=== PATIENT | female | born 1950 | race Two or more races ===

== ENCOUNTER 2016-05-27 12:22 | Emergency (ER) | payer MEDICARE ==
[~2016-05-27] VITALS: Ht 167.6 cm; Wt 89.8 kg
[2016-05-27] MEDS ORDERED: TDAP [DIPH/PERTUSSIS/TET] 0.5 ML VIAL IM ONE ×2 (12:47→13:00)
[2016-05-27] MEDS ORDERED: GABA-534 PO (13:01)
[2016-05-27] MEDS ORDERED: CELE200C PO (13:01)
[2016-05-27] MEDS ORDERED: METO25TA3 PO (13:01)
[2016-05-27] MEDS ORDERED: CITA10TA9 PO (13:01)
[2016-05-27] MEDS ORDERED: DEXL60CA3 PO (13:01)
[2016-05-27] MEDS ORDERED: SIMV20TA6 PO (13:01)
[2016-05-27] MEDS ORDERED: MELO-264 PO (13:01)
[2016-05-27] MEDS ORDERED: CANA100T PO (13:02)
[2016-05-27] MEDS ORDERED: SITA1TAB6 PO (13:02)
--- NOTE | 2016-05-27 13:02 | NUR ---
PT REC'D TO ER C/O GROUND FALL NO KO . LEFT EYE AND FORHEAD ABRASIONS NOTED AND RT KNEE . PT FELL LAST NIGHT WANTS TO CK. ADAP TET RT DELTOID IM GIVEN PER MD FAMILY AT BEDSIDE VSS AWAITING EVALUATION BY ER PROVIDER.
[2016-05-27 13:03] VITALS: BP_SYST 138
[2016-05-27] MEDS ORDERED: GLIM2TAB2 PO (13:03)
[2016-05-27] MEDS ORDERED: CHOL100044 PO (13:06)
[2016-05-27] MEDS ORDERED: OLME1TAB34 PO (13:07)
--- NOTE | 2016-05-27 14:41 | NUR ---
PT. VERBALIZED UNDERSTANDING OF AFTERCARE INSTRUCTIONS.Patient discharged to home in stable condition. Written and verbal after care instructions given. Patient verbalizes understanding of instruction.
[2016-05-27 14:43] VITALS: BP_DIAS 127
== END 2016-05-27 14:44 | disposition home or self-care (01) ==
LOC: ER 12:24
DX: S00.91XA Abrasion of unspecified part of head, initial encounter (principal); E78.00 Pure hypercholesterolemia, unspecified; I10 Essential (primary) hypertension; E11.9 Type 2 diabetes mellitus without complications; Z88.6 Allergy status to analgesic agent; W01.0XXA Fall on same level from slipping, tripping and stumbling without subsequent striking against object, initial encounter; Y93.89 Activity, other specified; Y92.89 Other specified places as the place of occurrence of the external cause; Y99.8 Other external cause status
CPT/HCPCS: 70150; 90471; 90715; 99284; A4606; Z7610

== ENCOUNTER 2017-01-23 12:14 | Emergency (ER) | payer MEDICARE, OTHER ==
[~2017-01-23] VITALS: Ht 167.6 cm; Wt 87.5 kg
[~2017-01-23 12:14] MED LIST: CANA100T PO; CELE200C PO; CHOL100044 PO; CITA10TA9 PO; DEXL60CA3 PO; GABA-534 PO; GLIM2TAB2 PO; MELO-264 PO; METO25TA3 PO; OLME1TAB34 PO; SIMV20TA6 PO; SITA1TAB6 PO
--- NOTE | 2017-01-23 13:10 | NUR ---
PRESENTS TO ER C/O ON/OFF HEADACHE X 1 WEEK. ALSO C/O MILD NAUSEA. A/OX 4. BREATHING EVEN AND UNLABORED. NO SOB. VITALS STABLE. NO NEURO DEFICITS. SAFETY AND COMFORT MEASURES IN PLACE. AWAITING MD ORDERS.
[2017-01-23] MEDS ORDERED: KETOROLAC TROMETHAMINE INJ 30 MG/ML VIAL ONE (13:21)
[2017-01-23] MEDS ORDERED: ONDANSETRON HCL/PF 4 MG/2 ML VIAL ONE (13:22)
--- NOTE | 2017-01-23 13:25 | NUR ---
NEW IV STARTED ON LAC, 18 G. BLOOD DRAWN AND SENT TO LAB.
[2017-01-23] MEDS ORDERED: IV NS 0.9% 1,000 ML BAG IV ONE (13:30)
[2017-01-23] MEDS ORDERED: KETOROLAC TROMETHAMINE INJ 30 MG/ML VIAL IV ONE (13:30)
[2017-01-23] MEDS ORDERED: ONDANSETRON HCL/PF 4 MG/2 ML VIAL IVP ONE (13:30)
--- NOTE | 2017-01-23 13:35 | NUR ---
PATIENT MEDICATED PER MD ORDERS.
[2017-01-23 13:37] LABS: LYMPHOCYTES # (AUTO) 1.2 /CMM (0.8-4.8); MEAN CORPUSCULAR HEMOGLOBIN 25 PG (26.0-33.0); MONOCYTES # (AUTO) 0.4 /CMM (0.1-1.30); WHITE BLOOD COUNT (AUTO) 4.8 K/uL (4.3-11.0)
[2017-01-23 13:42] LABS: BASOPHILS % (AUTO) 0.8 % (0.0-2.0); EOSINOPHILS % (AUTO) 0.7 % (0.0-6.0); HEMATOCRIT 44 % (33-45); HEMOGLOBIN 14.3 g/dL (11.5-14.8); LYMPHOCYTES % (AUTO) 25.4 % (20.0-44.0); MEAN CORPUSCULAR HGB CONC 33 g/dl (31.0-36.0); MEAN CORPUSCULAR VOLUME 77 fL (82-100); MONOCYTES % (AUTO) 8.7 % (2.0-12.0); NEUTROPHILS # (AUTO) 3.2 /CMM (1.8-8.9); NEUTROPHILS % (AUTO) 64.4 % (43.0-81.0); PLATELET COUNT (AUTO) 219 /CMM (150-450); RDW COEFFICIENT OF VARIATION 13.8 (11.5-15.0); RED BLOOD CELL COUNT(AUTO) 5.71 MIL/uL (4.0-5.2)
[2017-01-23 14:05] LABS: CALCIUM, SERUM 9.4 mg/dL (8.5-10.1); CREATININE 0.8 mg/dL (0.6-1.3); POTASSIUM 4.3 mmol/L (3.5-5.1)
--- NOTE | 2017-01-23 14:05 | NUR ---
URINE OBTAINED AND SENT TO LAB.
--- NOTE | 2017-01-23 14:15 | NUR ---
PATIENT TAKEN TO CT VIA STRETCHER.
--- NOTE | 2017-01-23 14:30 | NUR ---
PATIENT RETURNED FROM CT IN STABLE CONDITION.
[2017-01-23 14:46] LABS: APPEARANCE,URINE Clear (CLEAR); BILIRUBIN,URINE Negative (NEGATIVE); BLOOD, URINE Negative Ery/uL (NEGATIVE); COLOR,URINE Yellow (YELLOW); KETONES,URINE Negative (NEGATIVE); LEUKOCYTE ESTERASE ,URINE Trace (NEGATIVE); NITRITE, URINE Negative (NEGATIVE); PROTEIN,URINE Negative (NEGATIVE); UGLUCOSE >=1000 mg/dL (NEGATIVE); UROBILINOGEN,URINE 0.2 EU/dL (0.2)
[2017-01-23 14:49] LABS: BACTERIA,URINE Few /HPF (None Seen); SQUAMOUS EPITHELIAL CELL,UR Few /HPF (None Seen)
--- NOTE | 2017-01-23 15:19 | NUR ---
IV removed. Catheter intact and site benign. Pressure and 4x4 applied to site. No bleeding noted.Patient discharged to home in stable condition. Written and verbal after care instructions given. Patient verbalizes understanding of instruction.
[2017-01-23 15:20] VITALS: BP 181/92
== END 2017-01-23 15:21 | disposition home or self-care (01) ==
LOC: ER 12:18
DX: N39.0 Urinary tract infection, site not specified (principal); E78.5 Hyperlipidemia, unspecified; E11.9 Type 2 diabetes mellitus without complications; Z88.6 Allergy status to analgesic agent; Z88.5 Allergy status to narcotic agent; Z79.84 Long term (current) use of oral hypoglycemic drugs
CPT/HCPCS: 36415; 70450; 80048; 81001; 85025; 87086; 93005; 96361; 96374; 96375; 99285; A4606; J1885; J2405; J7030; 81000-TC; Z7610

== ENCOUNTER 2023-11-10 15:14 | Emergency (ER) | payer MEDICARE, OTHER ==
[~2023-11-10] VITALS: Ht 167.6 cm; Wt 86.2 kg
[~2023-11-10 15:14] MED LIST changes: -GLIM2TAB2 PO; +GLIM2TAB31 PO; +MELO-107 PO; -MELO-264 PO; +SIMV-46 PO; -SIMV20TA6 PO
[2023-11-10] MEDS ORDERED: METOCLOPRAMIDE HCL 10 MG/2 ML VIAL ONE (16:12)
[2023-11-10] MEDS: METOCLOPRAMIDE HCL 10 MG/2 ML VIAL IV ONE (16:19)
[2023-11-10] MEDS: IV NS 0.9% 1,000 ML BAG IV ONE (16:19)
[2023-11-10 16:23] LABS: BASOPHILS % (AUTO) 0.6 % (0.0-2.0); EOSINOPHILS # (AUTO) 0.1 K/uL (0.0-0.7); EOSINOPHILS % (AUTO) 1.8 % (0.0-6.0); HEMATOCRIT 42 % (33-45); HEMOGLOBIN 13.6 g/dL (11.5-14.8); LYMPHOCYTES # (AUTO) 1.1 K/uL (0.8-4.8); LYMPHOCYTES % (AUTO) 21.6 % (20.0-44.0); MEAN CORPUSCULAR HEMOGLOBIN 25 PG (26.0-33.0); MEAN CORPUSCULAR HGB CONC 33 g/dl (31.0-36.0); MEAN CORPUSCULAR VOLUME 77 fL (82-100); MONOCYTES # (AUTO) 0.6 K/uL (0.1-1.30); MONOCYTES % (AUTO) 11.4 % (2.0-12.0); NEUTROPHILS # (AUTO) 3.2 K/uL (1.8-8.9); NEUTROPHILS % (AUTO) 64.6 % (43.0-81.0); PLATELET COUNT (AUTO) 226 K/uL (150-450); RED BLOOD CELL COUNT(AUTO) 5.44 MIL/uL (4.0-5.2); RED CELL DISTRIBUTION WIDTH 15.5 % (11.5-15.0); WHITE BLOOD COUNT (AUTO) 4.9 K/uL (4.3-11.0)
[2023-11-10 16:30] LABS: APPEARANCE,URINE CLEAR (CLEAR); BILIRUBIN,URINE NEGATIVE (NEGATIVE); BLOOD, URINE TRACE-INTA Ery/uL (NEGATIVE); COLOR,URINE YELLOW (YELLOW); KETONES,URINE NEGATIVE (NEGATIVE); LEUKOCYTE ESTERASE ,URINE TRACE (NEGATIVE); NITRITE, URINE NEGATIVE (NEGATIVE); PROTEIN,URINE NEGATIVE (NEGATIVE); UGLUCOSE 3+ mg/dL (NEGATIVE); UROBILINOGEN,URINE 0.2 EU/dL (0.2)
[2023-11-10 16:34] LABS: INR 0.97 (0.91-1.10); PARTIAL THROMBOPLASTIN TIME 21.6 SEC (24.3-34.3); PROTHROMBIN TIME 10.3 SECS (9.2-11.1)
[2023-11-10 16:43] LABS: ALANINE AMINOTRANSFERASE 14 U/L (12-78); ALBUMIN 4.2 g/dL (3.4-5.0); ALKALINE PHOSPHATASE 78 U/L (46-116); ASPARTATE AMINOTRANSFERASE 18 U/L (15-37); BILIRUBIN,DIRECT 0.1 mg/dL (0.0-0.2); BILIRUBIN,TOTAL 0.4 mg/dL (0.2-1.0); CALCIUM, SERUM 9.7 mg/dL (8.5-10.1); CARBON DIOXIDE 27 mmol/L (21-32); CHLORIDE 102 mmol/L (98-107); CREATININE 1.3 mg/dL (0.6-1.3); GLUCOSE 173 mg/dL (74-106); POTASSIUM 3.9 mmol/L (3.5-5.1); SODIUM SERUM 138 mmol/L (136-145); TOTAL PROTEIN, SERUM 8.3 g/dL (6.4-8.2); UREA NITROGEN, BLOOD 18 mg/dL (7-18)
[2023-11-10 16:49] LABS: ADD URINE CULTURE NO; BACTERIA,URINE Rare /HPF (None Seen)
[2023-11-10] MEDS ORDERED: NITR100C6 PO (19:42)
[2023-11-10 20:10] VITALS: BP 110/70; TEMP 98; O2SAT 99
== END 2023-11-10 20:10 | disposition home or self-care (01) ==
LOC: ER 15:14
DX: N39.0 Urinary tract infection, site not specified (principal); R42 Dizziness and giddiness; E86.0 Dehydration; R51.9 Headache, unspecified; I10 Essential (primary) hypertension; E78.5 Hyperlipidemia, unspecified; E11.9 Type 2 diabetes mellitus without complications; Z88.5 Allergy status to narcotic agent; Z88.6 Allergy status to analgesic agent
CPT/HCPCS: 99285; 96374; 70450; 96361; 93005; 85025; 80048; 80076; 81001; 36415; 84484; 85730; J2765; J7030

== ENCOUNTER 2024-03-17 21:46 | Inpatient (IN) | payer MEDICARE, OTHER ==
[~2024-03-17] VITALS: Ht 167.6 cm; Wt 87.7 kg
[~2024-03-17 21:46] MED LIST changes: +NITR100C6 PO
[2024-03-17] MEDS ORDERED: IV NS 0.9% 1,000 ML BAG IV ONE (22:00)
[2024-03-17 22:15] LABS: BASOPHILS % (AUTO) 0.5 % (0.0-2.0); EOSINOPHILS % (AUTO) 0.6 % (0.0-6.0); HEMATOCRIT 40 % (33-45); HEMOGLOBIN 13.3 g/dL (11.5-14.8); LYMPHOCYTES # (AUTO) 1.7 K/uL (0.8-4.8); LYMPHOCYTES % (AUTO) 28.9 % (20.0-44.0); MEAN CORPUSCULAR HEMOGLOBIN 26 PG (26.0-33.0); MEAN CORPUSCULAR HGB CONC 33 g/dl (31.0-36.0); MEAN CORPUSCULAR VOLUME 77 fL (82-100); MONOCYTES # (AUTO) 0.5 K/uL (0.1-1.30); MONOCYTES % (AUTO) 8.8 % (2.0-12.0); NEUTROPHILS # (AUTO) 3.5 K/uL (1.8-8.9); NEUTROPHILS % (AUTO) 61.2 % (43.0-81.0); PLATELET COUNT (AUTO) 232 K/uL (150-450); RED CELL DISTRIBUTION WIDTH 15.1 % (11.5-15.0); WHITE BLOOD COUNT (AUTO) 5.7 K/uL (4.3-11.0)
[2024-03-17] MEDS: IV NS 0.9% 1,000 ML BAG IV ONE (22:19)
[2024-03-17 22:29] LABS: ALANINE AMINOTRANSFERASE 20 U/L (12-78); ALBUMIN 4.5 g/dL (3.4-5.0); ALCOHOL, BLOOD < 3 mg/dL (0-10); ALKALINE PHOSPHATASE 84 U/L (46-116); ASPARTATE AMINOTRANSFERASE 13 U/L (15-37); BILIRUBIN,DIRECT 0.2 mg/dL (0.0-0.2); BILIRUBIN,TOTAL 0.5 mg/dL (0.2-1.0); CALCIUM, SERUM 9.4 mg/dL (8.5-10.1); CARBON DIOXIDE 25 mmol/L (21-32); CHLORIDE 107 mmol/L (98-107); CREATININE 1.1 mg/dL (0.6-1.3); GLUCOSE 232 mg/dL (74-106); POTASSIUM 4.2 mmol/L (3.5-5.1); SODIUM SERUM 145 mmol/L (136-145); TOTAL PROTEIN, SERUM 8.3 g/dL (6.4-8.2); UREA NITROGEN, BLOOD 20 mg/dL (7-18)
[2024-03-17 22:30] LABS: INR 0.98 (0.91-1.10); PARTIAL THROMBOPLASTIN TIME 26.1 SEC (24.3-34.3); PROTHROMBIN TIME 10.4 SECS (9.2-11.1)
[2024-03-18] MEDS ORDERED: ASPIRIN 325 MG TABLET ONE (00:09)
[2024-03-18] MEDS: ASPIRIN 325 MG TABLET PO ONE (00:11)
[2024-03-18] MEDS ORDERED: MAG HYDROX/AL HYDROX/SIMETH 30 ML UDC PO PRN (00:30)
[2024-03-18 00:43] LABS: APPEARANCE,URINE CLEAR (CLEAR); BILIRUBIN,URINE NEGATIVE (NEGATIVE); BLOOD, URINE NEGATIVE Ery/uL (NEGATIVE); COLOR,URINE YELLOW (YELLOW); KETONES,URINE NEGATIVE (NEGATIVE); LEUKOCYTE ESTERASE ,URINE NEGATIVE (NEGATIVE); NITRITE, URINE NEGATIVE (NEGATIVE); PROTEIN,URINE NEGATIVE (NEGATIVE); UGLUCOSE 3+ mg/dL (NEGATIVE); UROBILINOGEN,URINE 0.2 EU/dL (0.2)
[2024-03-18 01:04] LABS: AMPHETAMINE, URINE NEGATIVE (NEGATIVE); BARBITURATE, URINE NEGATIVE (NEGATIVE); BENZODIAZEPINE, URINE NEGATIVE (NEGATIVE); CANNABINOID, URINE NEGATIVE (NEGATIVE); COCCAINE, URINE NEGATIVE (NEGATIVE); OPIATE, URINE NEGATIVE (NEGATIVE); PHENCYCLIDINE SCREEN,URINE NEGATIVE (NEGATIVE)
[2024-03-18 01:07] LABS: ADD URINE CULTURE YES; BACTERIA,URINE Few /HPF (None Seen)
[2024-03-18 01:09] LABS: RBC,URINE 0-2 /HPF (0-2); SQUAMOUS EPITHELIAL CELL,UR Few /HPF (None Seen)
[2024-03-18 04:00] VITALS: BP 109/53; TEMP 97.7; O2SAT 98
[2024-03-18] MEDS: IV 1/2NS 1000 ML 1,000 ML IV SCH (05:21)
[2024-03-18] MEDS: ACETAMINOPHEN ES 500 MG TABLET PO ONE (05:52)
[2024-03-18] MEDS ORDERED: ACETAMINOPHEN 325 MG TABLET PO PRN (06:00)
[2024-03-18] MEDS: PANTOPRAZOLE 40 MG TABLET.DR PO SCH (07:45)
[2024-03-18] MEDS: BLOOD SUGAR DIAGNOSTIC 1 EACH STRIP IN SCH (07:52)
[2024-03-18 08:00] VITALS: BP 122/73; TEMP 97.7; O2SAT 99
[2024-03-18 08:01] LABS: BASOPHILS % (AUTO) 0.5 % (0.0-2.0); EOSINOPHILS # (AUTO) 0.1 K/uL (0.0-0.7); EOSINOPHILS % (AUTO) 1.2 % (0.0-6.0); HEMATOCRIT 37 % (33-45); HEMOGLOBIN 12.2 g/dL (11.5-14.8); LYMPHOCYTES # (AUTO) 1.1 K/uL (0.8-4.8); LYMPHOCYTES % (AUTO) 25.5 % (20.0-44.0); MEAN CORPUSCULAR HEMOGLOBIN 26 PG (26.0-33.0); MEAN CORPUSCULAR HGB CONC 33 g/dl (31.0-36.0); MEAN CORPUSCULAR VOLUME 78 fL (82-100); MONOCYTES # (AUTO) 0.5 K/uL (0.1-1.30); MONOCYTES % (AUTO) 11.2 % (2.0-12.0); NEUTROPHILS # (AUTO) 2.6 K/uL (1.8-8.9); NEUTROPHILS % (AUTO) 61.6 % (43.0-81.0); PLATELET COUNT (AUTO) 204 K/uL (150-450); RED BLOOD CELL COUNT(AUTO) 4.76 MIL/uL (4.0-5.2); RED CELL DISTRIBUTION WIDTH 15.4 % (11.5-15.0); WHITE BLOOD COUNT (AUTO) 4.2 K/uL (4.3-11.0)
[2024-03-18 08:27] LABS: CALCIUM, SERUM 8.7 mg/dL (8.5-10.1); CREATININE 0.8 mg/dL (0.6-1.3); POTASSIUM 3.7 mmol/L (3.5-5.1)
[2024-03-18] MEDS: ASPIRIN 81 MG TAB.CHEW PO SCH (10:19)
[2024-03-18 12:00] VITALS: BP 102/68; TEMP 97.5; O2SAT 94
[2024-03-18 16:00] VITALS: BP 117/71; TEMP 97.6; O2SAT 95
[2024-03-18 20:00] VITALS: BP 130/80; TEMP 97.7; O2SAT 94
[2024-03-18] MEDS: ATORVASTATIN 40 MG TABLET PO SCH (21:15)
[2024-03-18] MEDS: INSULIN GLARGINE, 100 UNIT/ML CARTRIDGE SQ SCH (21:16)
[2024-03-19] VITALS: BP 143/82; TEMP 97.8; O2SAT 94
[2024-03-19] MEDS ORDERED: DEXTROSE 50%-WATER 50 ML DISP.SYRIN IV PRN (01:00)
[2024-03-19] MEDS: BLOOD SUGAR DIAGNOSTIC 1 EACH STRIP IN SCH (01:36)
[2024-03-19] MEDS: INSULIN REGULAR, HUMAN 100 UNIT/ML 3 ML VIAL SQ PRN (01:38)
[2024-03-19 04:00] VITALS: BP 126/69; TEMP 97.8; O2SAT 95
[2024-03-19 06:24] LABS: BASOPHILS % (AUTO) 0.5 % (0.0-2.0); EOSINOPHILS # (AUTO) 0.1 K/uL (0.0-0.7); EOSINOPHILS % (AUTO) 1.3 % (0.0-6.0); HEMATOCRIT 37 % (33-45); HEMOGLOBIN 12.4 g/dL (11.5-14.8); LYMPHOCYTES # (AUTO) 1.1 K/uL (0.8-4.8); LYMPHOCYTES % (AUTO) 23.4 % (20.0-44.0); MEAN CORPUSCULAR HEMOGLOBIN 26 PG (26.0-33.0); MEAN CORPUSCULAR HGB CONC 33 g/dl (31.0-36.0); MEAN CORPUSCULAR VOLUME 77 fL (82-100); MONOCYTES # (AUTO) 0.5 K/uL (0.1-1.30); MONOCYTES % (AUTO) 10.7 % (2.0-12.0); NEUTROPHILS # (AUTO) 2.9 K/uL (1.8-8.9); NEUTROPHILS % (AUTO) 64.1 % (43.0-81.0); PLATELET COUNT (AUTO) 201 K/uL (150-450); RED BLOOD CELL COUNT(AUTO) 4.86 MIL/uL (4.0-5.2); RED CELL DISTRIBUTION WIDTH 15.3 % (11.5-15.0); WHITE BLOOD COUNT (AUTO) 4.5 K/uL (4.3-11.0)
[2024-03-19 06:27] LABS: CALCIUM, SERUM 9.3 mg/dL (8.5-10.1); CREATININE 0.9 mg/dL (0.6-1.3); POTASSIUM 3.8 mmol/L (3.5-5.1)
[2024-03-19 08:05] VITALS: BP 143/79; TEMP 97.8; O2SAT 94
[2024-03-19] MEDS ORDERED: IOHEXOL-350 100 ML VIAL IV ONE (09:31)
[2024-03-19] MEDS ORDERED: CT SWABBABLE VALVE TRANS SET 1 EA INFUS.SET MC ONE (09:31)
[2024-03-19] MEDS ORDERED: IV NS 0.9% 250 ML IV ONE (09:31)
[2024-03-19] MEDS ORDERED: ROSU10TA2 PO (09:47)
[2024-03-19] MEDS ORDERED: NIFE-34 PO (09:47)
[2024-03-19] MEDS ORDERED: FERR-68 PO (09:47)
[2024-03-19] MEDS ORDERED: OLME1TAB92 PO (09:47)
[2024-03-19] MEDS ORDERED: GLIM4TAB37 PO (09:47)
[2024-03-19] MEDS ORDERED: SEMA7TAB PO (09:47)
[2024-03-19] MEDS ORDERED: DAPA10TA PO (09:47)
[2024-03-19] MEDS ORDERED: OMEP20CA15 PO (09:47)
[2024-03-19 12:00] VITALS: BP 135/89; TEMP 98; O2SAT 95
[2024-03-19 16:10] VITALS: BP 131/76; TEMP 98; O2SAT 93
[2024-03-19] MEDS: IV 1/2NS 1000 ML 1,000 ML IV PRN (19:52)
[2024-03-19 20:00] VITALS: BP 141/87; TEMP 97.7; O2SAT 96
[2024-03-20] VITALS: BP 143/75; TEMP 98.2; O2SAT 96
[2024-03-20 04:00] VITALS: BP 131/77; TEMP 98; O2SAT 94
[2024-03-20 07:49] LABS: CALCIUM, SERUM 8.6 mg/dL (8.5-10.1); CREATININE 0.9 mg/dL (0.6-1.3); POTASSIUM 3.6 mmol/L (3.5-5.1)
[2024-03-20 08:00] VITALS: BP 142/78; TEMP 98.4; O2SAT 92
[2024-03-20 08:01] LABS: BASOPHILS % (AUTO) 0.7 % (0.0-2.0); EOSINOPHILS # (AUTO) 0.1 K/uL (0.0-0.7); HEMATOCRIT 37 % (33-45); HEMOGLOBIN 12.2 g/dL (11.5-14.8); LYMPHOCYTES % (AUTO) 19.7 % (20.0-44.0); MEAN CORPUSCULAR HEMOGLOBIN 26 PG (26.0-33.0); MEAN CORPUSCULAR HGB CONC 33 g/dl (31.0-36.0); MEAN CORPUSCULAR VOLUME 77 fL (82-100); MONOCYTES # (AUTO) 0.5 K/uL (0.1-1.30); MONOCYTES % (AUTO) 10.8 % (2.0-12.0); NEUTROPHILS # (AUTO) 3.4 K/uL (1.8-8.9); NEUTROPHILS % (AUTO) 67.8 % (43.0-81.0); PLATELET COUNT (AUTO) 193 K/uL (150-450); RED BLOOD CELL COUNT(AUTO) 4.76 MIL/uL (4.0-5.2); RED CELL DISTRIBUTION WIDTH 14.6 % (11.5-15.0)
[2024-03-20 12:00] VITALS: BP 153/80; TEMP 98.2; O2SAT 95
[2024-03-20] MEDS ORDERED: ASPI-1169 PO (12:23)
== END 2024-03-20 15:00 | disposition home or self-care (01) | DRG 69 ==
LOC: ER 21:47 → TELE1 03-18 03:18
PROVIDERS: ADMIT Nurse Practitioner Acute Care; ATTEND Nurse Practitioner Acute Care
DX: G45.9 Transient cerebral ischemic attack, unspecified (principal); R47.01 Aphasia; E86.0 Dehydration; E78.5 Hyperlipidemia, unspecified; E78.00 Pure hypercholesterolemia, unspecified; I10 Essential (primary) hypertension; Z68.30 Body mass index [BMI] 30.0-30.9, adult; E66.9 Obesity, unspecified; E11.65 Type 2 diabetes mellitus with hyperglycemia; Z79.84 Long term (current) use of oral hypoglycemic drugs; Z79.899 Other long term (current) drug therapy; E03.9 Hypothyroidism, unspecified
CPT/HCPCS: 36415; 70450-TC; 70496-TC; 70498-TC; 71045-TC; 72125-TC; 80048-TC; 80061-TC; 80076-TC; 81001; 82962-TC; 84443-TC; 84484-TC; 85025-TC; 85730-TC; 87086-TC; 92526; 92611-TC; 93307-TC; 93880-TC; 97110-TC; 97116-TC; 97530-TC; 97535-TC; A4223; G0378; G0480; J1815; J3490; J7050; Q9967